=== PATIENT | male | born 1980 | race African-American/Black ===

== ENCOUNTER 2017-07-21 15:04 | Emergency (ER) | payer MEDICAID ==
[~2017-07-21] VITALS: Ht 182.9 cm; Wt 80.7 kg
[2017-07-21 15:19] VITALS: BP 146/76
--- NOTE | 2017-07-21 15:23 | NUR ---
PT AMBULATED TO [facility]
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
--- NOTE | 2017-07-21 15:38 | NUR ---
DR BHATIA EVALUATING PT AT BEDSIDE
--- NOTE | 2017-07-21 15:40 | NUR ---
PATIENT BEING EVALUATED BY DR BHATIA
--- NOTE | 2017-07-21 15:48 | NUR ---
PT MOVED TO BED 12
[2017-07-21] MEDS ORDERED: ACETAMINOPHEN/CODEINE 300/30MG 1 TAB PO ONE (15:50)
--- NOTE | 2017-07-21 15:50 | NUR ---
wound cleaned vigorously with sterile saline and betadine mix ----md at bedside--- pt currently unsure if wants sutures as adviced by
--- NOTE | 2017-07-21 16:12 | NUR ---
no tendon involvement noted---pt agreed to sutures
--- NOTE | 2017-07-21 16:20 | NUR ---
awaits md for lac repair
[2017-07-21] MEDS ORDERED: LIDOCAINE JELLY 2% 30 ML TUBE TP ONE (16:39)
[2017-07-21] MEDS ORDERED: LIDOCAINE/EPI 1% 1:100000 20 ML VIAL INJ ONE (17:06)
[2017-07-21] MEDS ORDERED: BACITRACIN OINT 500 UNITS/GM PKT TP ONE (17:49)
--- NOTE | 2017-07-21 18:04 | NUR ---
Patient discharged with v/s stable. Written and verbal after care instructions given and explained. Patient alert, oriented and verbalized understanding of instructions. Ambulatory with steady gait. All questions addressed prior to discharge. ID band removed. Patient advised to follow up with PMD. Rx of keflex/tylenol w codeine given. Patient educated on indication of medication including possible reaction and side effects. Opportunity to ask questions provided and answered. bacitracin applied to lac repair and dressed with non adhesive dressing wrapped with kerlix---
[2017-07-21 18:06] VITALS: BP 119/78
== END 2017-07-21 18:04 | disposition home or self-care (01) ==
LOC: MED 15:04
DX: S81.811A Laceration without foreign body, right lower leg, initial encounter (principal); K21.9 Gastro-esophageal reflux disease without esophagitis; V87.8XXA Person injured in other specified noncollision transport accidents involving motor vehicle (traffic), initial encounter; Y93.89 Activity, other specified; Y92.89 Other specified places as the place of occurrence of the external cause; Y99.8 Other external cause status
CPT/HCPCS: 12032; 99284; J2001

== ENCOUNTER 2017-07-28 14:23 | Emergency (ER) | payer MEDICAID ==
[~2017-07-28] VITALS: Ht 182.9 cm; Wt 81.6 kg
[2017-07-28 14:29] VITALS: BP 123/72
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
--- NOTE | 2017-07-28 15:34 | NUR ---
PATIENT ELOPED FROM FACILITY. DISCHARGE INSTRUCTIONS NOT GIVEN TO PATIENT. DR. CINTRON NOTIFIED. ER MD DID SEE THE PT, BUT PT LEFT PRIOR TO XRAY BEING PERFORMED.
== END 2017-07-28 15:34 | disposition left against medical advice (07) ==
LOC: MED 14:23
DX: S81.811D Laceration without foreign body, right lower leg, subsequent encounter (principal); X58.XXXD Exposure to other specified factors, subsequent encounter; K21.9 Gastro-esophageal reflux disease without esophagitis
CPT/HCPCS: 99281

== ENCOUNTER 2021-10-09 09:07 | Emergency (ER) | payer MEDICAID ==
[~2021-10-09] VITALS: Ht 177.8 cm; Wt 80.7 kg
[2021-10-09 09:12] VITALS: BP 156/94
--- NOTE | 2021-10-09 09:18 | NUR ---
AMBULATED TO BED 8 WITH STEADY GAIT
[2021-10-09] MEDS ORDERED: KETOROLAC 30 MG/ML VIAL IM ONE (09:25)
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
[2021-10-09 09:39] LABS: BASOPHILS # (AUTO) 0.1 K/uL (0.00-0.22); BASOPHILS % (AUTO) 0.9 % (0.0-2.0); EOSINOPHILS # (AUTO) 0.4 K/uL (0-0.4); HEMATOCRIT 45.3 % (36-52); HEMOGLOBIN 15.6 g/dL (12.0-18.0); LYMPHOCYTES # (AUTO) 2.6 K/uL (2.0-11.5); LYMPHOCYTES % (AUTO) 38.9 % (20.5-51.1); MEAN CORPUSCULAR HEMOGLOBIN 32 pg (27-31); MEAN CORPUSCULAR HGB CONC 34 g/dL (33-37); MEAN CORPUSCULAR VOLUME 94.2 fL (80-94); MONOCYTES # (AUTO) 0.6 K/uL (0.8-1.0); MONOCYTES % (AUTO) 8.7 % (1.7-9.3); NEUTROPHILS % (AUTO) 45.5 % (42.2-75.2); PLATELET COUNT (AUTO) 309 K/uL (140-450); RED BLOOD CELL COUNT(AUTO) 4.81 MIL/uL (4.20-6.10); WHITE BLOOD COUNT (AUTO) 6.6 K/uL (4.8-10.8)
[2021-10-09 10:03] LABS: ALBUMIN 4.1 g/dL (3.4-5.0); ANION GAP 12.1 (8-16); CARBON DIOXIDE 25.4 mmol/L (21-32); CREATININE 0.9 mg/dL (0.6-1.3); POTASSIUM 3.5 mmol/L (3.5-5.1); TOTAL BILIRUBIN 0.3 mg/dL (0.0-1.0)
[2021-10-09] MEDS ORDERED: NAPR-54 PO (10:38)
[2021-10-09] MEDS ORDERED: CYCL-711 PO (10:38)
[2021-10-09] MEDS ORDERED: LID5T TP (10:39)
[2021-10-09 10:49] VITALS: BP 145/96
--- NOTE | 2021-10-09 10:53 | NUR ---
Patient discharged with v/s stable. Written and verbal after care instructions FOR MUSCLE STRAIN given and explained. Patient alert, oriented and verbalized understanding of instructions. Ambulatory with steady gait. All questions addressed prior to discharge. ID band removed. Patient advised to follow up with PMD. Rx of FLEXERIL, LIDOCAINE HYD, AND NAPROXEN given. Opportunity to ask questions provided and answered.
--- NOTE | 2021-10-09 10:54 | NUR ---
The patient's care was reviewed and supervised by Wendy Newberry RN.
== END 2021-10-09 10:49 | disposition home or self-care (01) ==
LOC: MED 09:07
DX: S76.912A Strain of unspecified muscles, fascia and tendons at thigh level, left thigh, initial encounter (principal); K21.9 Gastro-esophageal reflux disease without esophagitis; Z79.899 Other long term (current) drug therapy; Z79.1 Long term (current) use of non-steroidal anti-inflammatories (NSAID); X58.XXXA Exposure to other specified factors, initial encounter; Y92.89 Other specified places as the place of occurrence of the external cause; Y93.89 Activity, other specified; Y99.8 Other external cause status
CPT/HCPCS: 36415; 80053; 85025; 96372; 99283; J1885

== ENCOUNTER 2022-11-02 06:15 | Emergency (ER) | payer MEDICAID ==
[~2022-11-02] VITALS: Ht 180.3 cm; Wt 79.4 kg
[~2022-11-02 06:15] MED LIST: CYCL-711 PO; LID5T TP; NAPR-54 PO
[2022-11-02 06:22] VITALS: BP 132/88; PULSE 71; RESP 16; TEMP 97.8; O2SAT 98
--- NOTE | 2022-11-02 06:25 | NUR ---
to lobby a/w bed ambulatory
--- NOTE | 2022-11-02 07:25 | NUR ---
ACUTE ONSET RT SHOULDER PAIN, NON TRAUMATIC, DECREASED PROM, BUT N/V INTACT. MD TO EXAMINE PT
[2022-11-02] MEDS ORDERED: KETOROLAC 30 MG/ML VIAL IM ONE (07:35)
[2022-11-02] MEDS ORDERED: DICL100G5 TP (08:16)
[2022-11-02] MEDS ORDERED: IBUP-2213 PO (08:16)
[2022-11-02] MEDS ORDERED: CYCL-711 PO (08:16)
--- NOTE | 2022-11-02 08:21 | NUR ---
Patient discharged with v/s stable. Written and verbal after care instructions given and explained. Patient alert, oriented and verbalized understanding of instructions. Ambulatory with steady gait. All questions addressed prior to discharge. ID band removed. Patient advised to follow up with PMD. Rx of MOTRIN, FLEXERIL given. Patient educated on indication of medication including possible reaction and side effects. Opportunity to ask questions provided and answered.
== END 2022-11-02 08:21 | disposition home or self-care (01) ==
LOC: MED 06:15
DX: M75.101 Unspecified rotator cuff tear or rupture of right shoulder, not specified as traumatic (principal); K21.9 Gastro-esophageal reflux disease without esophagitis; Z79.899 Other long term (current) drug therapy
CPT/HCPCS: 73030; 96372; 99283; J1885

== ENCOUNTER 2023-11-04 11:30 | Emergency (ER) | payer MEDICAID ==
[~2023-11-04] VITALS: Ht 177.8 cm; Wt 79.4 kg
[~2023-11-04 11:30] MED LIST changes: +DICL100G32 TP; +IBUP-2213 PO; +NAPR-337 PO; -NAPR-54 PO
[2023-11-04 11:55] VITALS: BP 147/73; PULSE 68; RESP 20; TEMP 97.8; O2SAT 100
[2023-11-04] MEDS ORDERED: INDO-305 PO (12:26)
[2023-11-04] MEDS ORDERED: PRED20TA5 PO (12:26)
== END 2023-11-04 12:41 | disposition home or self-care (01) ==
LOC: MED 11:30
DX: M10.071 Idiopathic gout, right ankle and foot (principal); K21.9 Gastro-esophageal reflux disease without esophagitis; Z79.899 Other long term (current) drug therapy
CPT/HCPCS: 99283